=== PATIENT | female | born 1985 | race Caucasian/White ===

== ENCOUNTER 2017-04-07 08:04 | Inpatient (IN) | payer BC ==
[~2017-04-07] VITALS: Ht 160 cm; Wt 59.1 kg
[~2017-04-07 08:04] MED LIST: FERR325T17 PO; IBUP-1222 PO; OXYC-302 PO
[2017-04-07] MEDS ORDERED: PRENATAL VIT/IRON/FA 1 EACH TABLET ONE (08:26)
[2017-04-07] MEDS ORDERED: OXYTOCIN 30U/ 0.9% NaCL 500ML 500 ML ONE (08:34)
[2017-04-07] MEDS ORDERED: NEWBORN KIT ONE (08:34)
[2017-04-07] MEDS ORDERED: LIDOCAINE 1%, 20ML ONE (08:36)
[2017-04-07] MEDS: OXYTOCIN 30U/ 0.9% NaCL 500ML 500 ML IV SCH ×2 (08:49→18:49)
[2017-04-07] MEDS ORDERED: DOCUSATE 100 MG CAPSULE PO PRN (09:00)
[2017-04-07] MEDS ORDERED: ONDANSETRON 2MG/ML, 2ML IV PRN (09:00)
[2017-04-07] MEDS ORDERED: HYDROcodone/APAP 5/325 TABLET PO PRN ×2 (09:00)
[2017-04-07] MEDS: PRENATAL VIT/IRON/FA 1 EACH TABLET PO SCH (09:00)
[2017-04-07] MEDS ORDERED: MISOPROSTOL 200 MCG TABLET PO PRN (09:00)
[2017-04-07] MEDS ORDERED: IBUPROFEN 600 MG TABLET PO PRN (09:00)
[2017-04-07 09:11] VITALS: BP 142/70
[2017-04-07 10:30] VITALS: BP 111/77
[2017-04-07 16:10] VITALS: BP 125/71
[2017-04-07 16:21] LABS: HEMATOCRIT 41.2 % (34.6-47.8); HEMOGLOBIN 13.9 g/dL (11.7-16.4); WHITE BLOOD COUNT 12.6 x10^3/uL (3.4-10)
[2017-04-07 19:52] VITALS: BP 119/77
[2017-04-07] MEDS ORDERED: FENTANYL PF 100 MCG/2ML IV PRN (20:00)
[2017-04-07] MEDS ORDERED: ONDANSETRON 2MG/ML, 2ML IVPush PRN (20:00)
[2017-04-07] MEDS ORDERED: FENTANYL PF 100 MCG/2ML IVPush PRN (20:00)
[2017-04-08 00:20] VITALS: BP 106/64
[2017-04-08 04:20] VITALS: BP 114/76
[2017-04-08] MEDS: OXYTOCIN 30U/ 0.9% NaCL 500ML 500 ML IV SCH (04:49)
[2017-04-08 07:20] VITALS: BP 111/72
[2017-04-08] MEDS: PRENATAL VIT/IRON/FA 1 EACH TABLET PO SCH (09:00)
== END 2017-04-08 17:51 | disposition home or self-care (01) | DRG 775 ==
LOC: LDOP 08:04 → LDIP 08:19 → 2NW 10:10
PROVIDERS: ADMIT Obstetrics & Gynecology; ATTEND Obstetrics & Gynecology
PROC: 10E0XZZ Delivery of Products of Conception, External Approach (ICD-10-PCS; principal; 2017-04-07)
PROC: 0HQ9XZZ Repair Perineum Skin, External Approach (ICD-10-PCS; 2017-04-07)
DX: O70.0 First degree perineal laceration during delivery (principal); Z37.0 Single live birth; Z3A.39 39 weeks gestation of pregnancy
CPT/HCPCS: 36415; 85025; 86850; 86900

== ENCOUNTER 2018-04-30 18:38 | Emergency (ER) | payer BC ==
[~2018-04-30] VITALS: Ht 160 cm; Wt 51.7 kg
[2018-04-30 19:02] LABS: BASOPHILS # (AUTO) 0.02 x10^3/uL (0-0.1); BASOPHILS % (AUTO) 0 % (0-1); EOSINOPHILS % (AUTO) 3 % (1-7); LYMPHOCYTES # (AUTO) 1.91 x10^3/uL (1-3.4); LYMPHOCYTES % (AUTO) 28 % (22-44); MD NO; MEAN CORPUSCULAR HEMOGLOBIN 29.6 pg (27.0-34.8); MEAN CORPUSCULAR VOLUME 87.2 fL (80-100); MEAN PLATELET VOLUME 7.3 fL (7.4-10.4); MONOCYTES # (AUTO) 0.53 x10^3/uL (0.2-0.8); MONOCYTES % (AUTO) 8 % (2-9); NEUTROPHILS # (AUTO) 4.24 x10^3/uL (1.8-6.8); NEUTROPHILS % (AUTO) 62 % (42-75); PLATELET COUNT 247 x10^3/uL (130-400); RED CELL DISTRIBUTION WIDTH 13.3 % (9.6-15.2)
[2018-04-30 19:15] LABS: ALBUMIN 3.8 g/dL (3.4-5.0); ANION GAP 7 mmol/L (5-15); CALCIUM 9.1 mg/dL (8.5-10.1); CHLORIDE 108 mmol/L (98-107); CREATININE 0.92 mg/dL (0.55-1.02)
[2018-04-30 21:16] VITALS: BP 108/65
== END 2018-04-30 21:18 | disposition home or self-care (01) ==
LOC: ED 21:12
DX: R19.7 Diarrhea, unspecified (principal)
CPT/HCPCS: 36415; 80048; 82040; 84702; 85025; 99284